=== PATIENT | male | born 1995 | race Caucasian/White ===

== ENCOUNTER 2016-04-25 13:05 | Emergency (ER) | payer SELFPAY ==
[2016-04-25 13:12] VITALS: BP 115/65; PULSE 75; TEMP 98.6; BMI 25.0
--- NOTE | 2016-04-25 13:15 | PDOC ---
History of Present Illness - General Chief Complaint: Injury Stated Complaint: RIGHT THIGH INJURY Time Seen by Provider: 04/25/16 13:15 Past History - Past Medical History Allergies/Adverse Reactions: Allergies Allergy/AdvReac Type Severity Reaction Status Date / Time No Known Allergies Allergy Verified 04/25/16 13:06 Home Medications: Ambulatory Orders Cephalexin [Keflex] 500 mg PO QID #30 capsule 04/25/16 Ibuprofen [Motrin -] 400 mg PO QID #120 tablet 04/25/16 Multivitamins [Tab-A-Vit -] 1 tab PO DAILY 04/25/16 Suicide Attempt (Hx): No Other medical history: DENIES - Psycho/Social/Smoking Cessation Hx Anxiety: No Suicidal Ideation: No Smoking Status: Yes Smoking History: Current every day smoker Have you smoked in the past 12 months: Yes Number of Cigarettes Smoked Daily: 5 Information on smoking cessation initiated: Yes 'Breaking Loose' booklet given: 04/25/16 Hx Alcohol Use: No Drug/Substance Use Hx: No Substance Use Type: None Trauma Specific PMHX - Complaint Specific PMHX Arthritis: No Back Injury: No Neck Injury: No Hx Sacro Iliac Joint Dysfunction: No Review of Systems - Review of Systems Able to Perform ROS?: Yes Is the patient limited Mauritian proficient: No Constitutional: No: Symptoms Reported HEENTM: No: Symptoms Reported Respiratory: No: Symptoms reported Cardiac (ROS): No: Symptoms Reported ABD/GI: No: Symptoms Reported : No: Symptoms Reported Musculoskeletal: Yes: Other (injury to right thigh on the job with lac to the distal right lateral thigh not bleeding) Integumentary: Yes: Other (lac as discribed approximately 2.5 cm) Neurological: No: Symptoms reported All Other Systems: Reviewed and Negative *Physical Exam - Vital Signs Last Vital Signs Temp Pulse Resp BP Pulse Ox 98.6 F 75 18 115/65 97 04/25/16 13:05 04/25/16 13:05 04/25/16 13:05 04/25/16 13:05 04/25/16 13:05 - Physical Exam Comments: 04/25/16 13:24 focused exam Extremity: positive: Other (tenderness right thigh (able to ambulate) lateral thigh lac, no visible FB, distally normal Neuro vascular motor exam) *DC/Admit/Observation/Transfer Diagnosis at time of Disposition: Contusion, Laceration - Discharge Dispostion Disposition: HOME Condition at time of disposition: Stable Admit: No - Prescriptions Prescriptions: Cephalexin [Keflex] 500 mg PO QID #30 capsule Ibuprofen [Motrin -] 400 mg PO QID #120 tablet - Referrals Referrals: Isael Plummer MD [Primary Care Provider] - - Patient Instructions Printed Discharge Instructions: Contusion, DI for Laceration Repair Additional Instructions: sutures out 7-10 days
[2016-04-25] MEDS ORDERED: DIPHTH,PERTUSS(ACELL),TET 0.5 ML DISP.SYRIN IM ONE (13:16)
== END 2016-04-25 14:42 | disposition home or self-care (01) ==
LOC: FER 13:05
PROC: 0HQHXZZ Repair Right Upper Leg Skin, External Approach (ICD-10-PCS; principal; 2016-04-25)
PROC: 3E0234Z Introduction of Serum, Toxoid and Vaccine into Muscle, Percutaneous Approach (ICD-10-PCS; 2016-04-25)
DX: S71.111A Laceration without foreign body, right thigh, initial encounter (principal); S70.11XA Contusion of right thigh, initial encounter; F17.210 Nicotine dependence, cigarettes, uncomplicated; X58.XXXA Exposure to other specified factors, initial encounter; Y93.9 Activity, unspecified; Y92.9 Unspecified place or not applicable
CPT/HCPCS: 12001-25; 73552-TC-RT; 90471; 90715; 99283-25

== ENCOUNTER 2019-03-12 20:42 | Emergency (ER) | payer OTHER ==
[2019-03-12 21:08] VITALS: BP 113/75; PULSE 83; TEMP 98.5; BMI 23.3
[2019-03-12] MEDS ORDERED: AZITHROMYCIN 500 MG TABLET PO ONE (21:09)
[2019-03-12] MEDS ORDERED: AZITHROMYCIN 250 MG TABLET ONE (21:11)
--- NOTE | 2019-03-12 22:30 | PDOC ---
Documentation entered by Chuck Vazquez SCRIBE, acting as scribe for Kirby Cuadra MD. Kirby Cuadra MD: This documentation has been prepared by the George landrum Xhesika, SCRIBE, under my direction and personally reviewed by me in its entirety. I confirm that the documentation accurately reflects all work, treatment, procedures, and medical decision making performed by me. History of Present Illness - General Chief Complaint: Urinary Problem Stated Complaint: URINARY PROBLEM Time Seen by Provider: 03/12/19 20:46 History Source: Patient Exam Limitations: No Limitations - History of Present Illness Initial Comments: 03/12/19 20:48 The patient is a 23 year old male with no significant PMH of who presents to the emergency department for dysuria and white penile discharge. Pt states he is sexually active with one partner. Pt denies hx of STD. The patient denies chest pain, shortness of breath, headache and dizziness. Denies fever, chills, cough, nausea, vomiting, diarrhea and constipation. Denies dysuria, frequency, urgency and hematuria. Allergies: NKDA Past History - Past Medical History Allergies/Adverse Reactions: Allergies Allergy/AdvReac Type Severity Reaction Status Date / Time No Known Allergies Allergy Verified 04/25/16 13:06 Home Medications: Ambulatory Orders Cephalexin [Keflex] 500 mg PO QID #30 capsule 04/25/16 Ibuprofen [Motrin -] 400 mg PO QID #120 tablet 04/25/16 Multivitamins [Tab-A-Vit -] 1 tab PO DAILY 04/25/16 Oseltamivir Phosphate [Tamiflu -] 75 mg PO BID #10 capsule 05/15/16 - Immunization History Immunization Up to Date: Yes - Psycho Social/Smoking Cessation Hx Smoking Status: Yes Smoking History: Current every day smoker Have you smoked in the past 12 months: Yes Number of Cigarettes Smoked Daily: 5 'Breaking Loose' booklet given: 05/15/16 Hx Alcohol Use: No Drug/Substance Use Hx: No Substance Use Type: None Review of Systems - Review of Systems Able to Perform ROS?: Yes Comments:: 03/12/19 20:49 GENERAL/CONSTITUTIONAL: No fever or chills. No weakness. HEAD, EYES, EARS, NOSE AND THROAT: No change in vision. No ear pain or discharge. No sore throat. CARDIOVASCULAR: No chest pain or shortness of breath. RESPIRATORY: No cough, wheezing, or hemoptysis. GASTROINTESTINAL: No nausea, vomiting, diarrhea or constipation. GENITOURINARY: +dysuria,+ penile discharge. No frequency, or change in urination. MUSCULOSKELETAL: No joint or muscle swelling or pain. No neck or back pain. SKIN: No rash NEUROLOGIC: No headache, vertigo, loss of consciousness, or change in strength/ sensation. ENDOCRINE: No increased thirst. No abnormal weight change. HEMATOLOGIC/LYMPHATIC: No anemia, easy bleeding, or history of blood clots. ALLERGIC/IMMUNOLOGIC: No hives or skin allergy. *Physical Exam - Vital Signs Last Vital Signs Temp Pulse Resp BP Pulse Ox 98.5 F 83 18 113/75 98 03/12/19 20:42 03/12/19 20:42 03/12/19 20:42 03/12/19 20:42 03/12/19 20:42 - Physical Exam 03/12/19 20:49 GENERAL: Awake, alert, and fully oriented, in no acute distress LUNGS: Breath sounds equal, clear to auscultation bilaterally. No wheezes, and no crackles HEART: Regular rate and rhythm, normal S1 and S2, no murmurs, rubs or gallops ABDOMEN: Soft, nontender, normoactive bowel sounds. No guarding, no rebound. No masses : +white penile discharge. EXTREMITIES: Normal range of motion, no edema. No clubbing or cyanosis. No cords, erythema, or tenderness NEUROLOGICAL: Cranial nerves II through XII grossly intact. Normal speech, normal gait SKIN: Warm, Dry, normal turgor, no rashes or lesions noted. Medical Decision Making - Medical Decision Making 03/12/19 22:30 sti abx counseled to refer partners for sti treatment Discharge - Discharge Information Problems reviewed: Yes Clinical Impression/Diagnosis: Urethritis Condition: Stable Disposition: HOME - Admission No - Follow up/Referral - Patient Discharge Instructions Patient Printed Discharge Instructions: DI for Gonorrhea Additional Instructions: Call for the results of your culture in 3 days: [phone] - Post Discharge Activity
--- NOTE | 2019-03-15 08:04 | PDOC ---
Patient Follow-up (Call Back) - Post ED Follow - Up Condition at time of discharge: Stable Disposition at time of original discharge: HOME Reason for Call Back: Abnwl. Lab - Disposition Additional Instructions/Notes: Pt called to obtain results of his STI testing. I confirmed that he was positive for gonorrhea and was treated in the ED. I explained that any partners should be made aware and should seek treatment, and that he should avoid intercourse for a week after treatment.
== END 2019-03-12 21:21 | disposition home or self-care (01) ==
LOC: FER 20:42
DX: N34.2 Other urethritis (principal); F17.210 Nicotine dependence, cigarettes, uncomplicated
CPT/HCPCS: 36415; 87491; 87591; 99282-25

== ENCOUNTER 2019-03-29 21:16 | Emergency (ER) | payer SELFPAY ==
[2019-03-29 21:22] VITALS: BP 116/75; PULSE 84; TEMP 98; BMI 23.3
[2019-03-29] MEDS ORDERED: OSELTAMIVIR PHOSPHATE 75 MG CAPSULE PO ONE (21:34)
[2019-03-29] MEDS ORDERED: OSELTAMIVIR PHOSPHATE 75 MG CAPSULE ONE (21:36)
--- NOTE | 2019-03-29 21:38 | PDOC ---
Documentation entered by Romeo Raya SCRIBE, acting as scribe for Jackelyn Turner MD. Jackelyn Turner MD: This documentation has been prepared by the Elver landrum Nirvannie, SCRIBE, under my direction and personally reviewed by me in its entirety. I confirm that the documentation accurately reflects all work, treatment, procedures, and medical decision making performed by me. History of Present Illness - General Chief Complaint: Headache Stated Complaint: NAUSEA/HEADACHE Time Seen by Provider: 03/29/19 21:20 History Source: Patient Exam Limitations: No Limitations - History of Present Illness Initial Comments: 03/29/19 21:40 HPI: The patient is a 23 year old male, with no significant past medical history, who presents to the emergency department with 6 hours of headache, nausea, vomiting, subjective fever, and malaise. As per patient, at approximately 3pm while at work his symptoms onset prompting him to go home and rest. He notes waking up 2 hours prior to his arrival at which time he took unknown fever medication and soup then reported to the ED. Patient is not up to date with his flu shot. He denies any recent diarrhea or constipation. He denies any recent chest pain or shortness of breath. He denies any recent dysuria, frequency, urgency or hematuria. PAST MEDICAL HISTORY: no significant history PAST SURGICAL HISTORY: no significant history FAMILY HISTORY: no pertinent history SOCIAL HISTORY: Pt lives with family and is employed. MEDICATIONS: reviewed ALLERGIES: As per nursing notes ROS: General: +Subjective fevers. +Malaise. no weight loss HEENT: No change in vision. No sore throat,. No ear pain CardioVascular: No chest pain or shortness of breath Respiratory:No cough, or wheezing. Gastrointestinal: +nausea +vomiting. No diarrhea or constipation, No rectal bleeding Genitourinary: No dysuria, hematuria, or frequency Musculoskeletal: No joint or muscle pain or swelling Neurologic: + headache. No vertigo, dizziness or loss of consciousness Psychiatric: nor depression Skin: No rashes or easy bruising Endocrine: no increased thirst or abnormal weight change Allergic: no skin or latex allergy All other systems reviewed and normal Physical Exam: GENERAL: The patient is awake, alert, and fully oriented, in no acute distress. HEAD: Normal with no signs of trauma. EYES: Pupils equal, round and reactive to light, extraocular movements intact, sclera anicteric, conjunctiva clear. ENT: Throat: +Mildly erythematous. EXTREMITIES: Normal range of motion, no edema. NEUROLOGICAL: Normal speech, normal gait. PSYCH: Normal mood, normal affect. SKIN: Warm, Dry, normal turgor, no rashes or lesions noted. 03/29/19 21:41 Past History - Past Medical History Allergies/Adverse Reactions: Allergies Allergy/AdvReac Type Severity Reaction Status Date / Time No Known Allergies Allergy Verified 04/25/16 13:06 Home Medications: Ambulatory Orders Oseltamivir Phosphate [Tamiflu] 75 mg PO BID #10 capsule 03/29/19 COPD: No - Immunization History Immunization Up to Date: Yes - Psycho Social/Smoking Cessation Hx Smoking Status: Yes Smoking History: Never smoked Have you smoked in the past 12 months: Yes Number of Cigarettes Smoked Daily: 5 'Breaking Loose' booklet given: 05/15/16 Hx Alcohol Use: No Drug/Substance Use Hx: No Substance Use Type: None *Physical Exam - Vital Signs Last Vital Signs Temp Pulse Resp BP Pulse Ox 98 F 84 16 116/75 100 03/29/19 21:18 03/29/19 21:18 03/29/19 21:18 03/29/19 21:18 03/29/19 21:18 Discharge - Discharge Information Problems reviewed: Yes Clinical Impression/Diagnosis: Influenza-like illness Condition: Stable - Admission No - Additional Discharge Information Prescriptions: Oseltamivir Phosphate [Tamiflu] 75 mg PO BID #10 capsule - Follow up/Referral - Patient Discharge Instructions Patient Printed Discharge Instructions: Influenza Additional Instructions: Take Tamiflu 1 tablet twice a day for 5 days. Tylenol or Motrin as needed for headache, fever, body aches. No work until March Return to the emergency department immediately with ANY new, persistent or worsening symptoms. Continue any medications as previously prescribed by your physician. You should follow up with your primary doctor as soon as possible regarding today's emergency department visit. . Please make sure your doctor reviews the results of your emergency evaluation. Thank you for coming to the Emergency Department today for your care. It was a pleasure to see you today. Please note that your evaluation is INCOMPLETE until you follow-up with your doctor. - Post Discharge Activity Work/Back to School Note: Back to Work
== END 2019-03-29 21:42 | disposition home or self-care (01) ==
LOC: FER 21:16
DX: J11.1 Influenza due to unidentified influenza virus with other respiratory manifestations (principal); Z87.891 Personal history of nicotine dependence
CPT/HCPCS: 99281-25

== ENCOUNTER 2019-05-06 00:51 | Emergency (ER) | payer OTHER ==
[2019-05-06 00:56] VITALS: BP 0/0; BMI 23.3
[2019-05-06] MEDS ORDERED: AZITHROMYCIN 500 MG TABLET PO ONE (01:11)
[2019-05-06] MEDS ORDERED: AZITHROMYCIN 500 MG TABLET ONE (01:12)
--- NOTE | 2019-05-06 01:12 | PDOC ---
History of Present Illness - General Chief Complaint: Urinary Problem Stated Complaint: WANTS RX FOR STD'S Time Seen by Provider: 05/06/19 01:06 History Source: Patient Exam Limitations: No Limitations - History of Present Illness Initial Comments: 05/06/19 01:12 This is a 23-year-old male who comes in complaining of penile discharge. Patient has a history of STDs in the past and does not use condoms with sexual intercourse. Patient said his partner tested positive recently for an STD. Allergies: as per nursing notes Past Medical History: none Social history: Lives with family. No smoking. No alcohol. No illicit drugs. Surgical history: None General: No fevers or chills, no weakness, no weight loss HEENT: No change in vision. No sore throat,. No ear pain CardioVascular: no chest discomfort. No shortness of breath Respiratory:No cough, or wheezing. Gastrointestinal: no nausea, vomiting, diarrhea or constipation, No rectal bleeding Genitourinary: No dysuria, hematuria, or frequency Musculoskeletal: No joint or muscle pain or swelling Neurologic: No headache, vertigo, dizziness or loss of consciousness Psychiatric: nor depression Skin: No rashes or easy bruising Endocrine: no increased thirst or abnormal weight change Allergic: no skin or latex allergy All other systems reviewed and normal GENERAL: The patient is awake, alert, and fully oriented, in no acute distress. HEENT:Head is normal with no signs of trauma. Eyes: Pupils equal, round and reactive to light, Ears, and Throat are normal. Neck is supple. No Lymphadenopathy. EXTREMITIES:atraumatic, Normal range of motion, no edema. NEUROLOGICAL: Normal speech, normal gait. PSYCH: Normal mood, normal affect. SKIN: Warm, Dry, normal turgor, no rashes or lesions noted. exam: There is a normal circumcised male with white discharge from the tip of the penis. There is no lesions Assessment and plan: This is a 23-year-old male with STD. Patient given ceftriaxone and azithromycin and a VDRL was sent. Patient was instructed to use condoms with intercourse and no sexual intercourse until he has the results of his cultures and his partner or partners will need to be treated as well Past History - Past Medical History Allergies/Adverse Reactions: Allergies Allergy/AdvReac Type Severity Reaction Status Date / Time No Known Allergies Allergy Verified 04/25/16 13:06 Home Medications: Ambulatory Orders NK [No Known Home Medication] 05/06/19 COPD: No - Immunization History Immunization Up to Date: Yes - Psycho Social/Smoking Cessation Hx Smoking Status: Yes Smoking History: Current every day smoker Have you smoked in the past 12 months: Yes Number of Cigarettes Smoked Daily: 5 Information on smoking cessation initiated: Yes 'Breaking Loose' booklet given: 05/15/16 Hx Alcohol Use: No Drug/Substance Use Hx: No Substance Use Type: None *Physical Exam - Vital Signs Last Vital Signs Temp Pulse Resp BP Pulse Ox 0/0 L 05/06/19 00:54 Discharge - Discharge Information Problems reviewed: Yes Clinical Impression/Diagnosis: STD (male) Condition: Stable Disposition: HOME - Admission No - Follow up/Referral - Patient Discharge Instructions Additional Instructions: No sexual intercourse until you have the results of your testing for your STD and then your partners will need to be notified and treated. In the future you should use condoms with sexual intercourse to prevent future STDs.. Return to the emergency department immediately with ANY new, persistent or worsening symptoms. Continue any medications as previously prescribed by your physician. You should follow up with your primary doctor as soon as possible regarding today's emergency department visit. . Please make sure your doctor reviews the results of your emergency evaluation. Thank you for coming to the Emergency Department today for your care. It was a pleasure to see you today. Please note that your evaluation is INCOMPLETE until you follow-up with your doctor. - Post Discharge Activity
== END 2019-05-06 01:19 | disposition home or self-care (01) ==
LOC: FER 00:51
DX: Z20.2 Contact with and (suspected) exposure to infections with a predominantly sexual mode of transmission (principal); F17.210 Nicotine dependence, cigarettes, uncomplicated
CPT/HCPCS: 99283-25

== ENCOUNTER 2023-06-07 10:26 | Emergency (ER) | payer OTHER ==
[2023-06-07 10:33] VITALS: BP 118/84; PULSE 74; RESP 20; TEMP 99.4; BMI 25.8
[2023-06-07] MEDS: NAPROXEN 500 MG TABLET PO ONE (11:09)
[2023-06-07] MEDS ORDERED: NAPROXEN 500 MG TABLET ONE (11:10)
== END 2023-06-07 11:24 | disposition home or self-care (01) ==
LOC: FER 10:26
DX: R51.9 Headache, unspecified (principal); K64.8 Other hemorrhoids
CPT/HCPCS: 99283-25

== ENCOUNTER 2023-12-27 09:56 | Emergency (ER) | payer OTHER ==
[2023-12-27 10:34] VITALS: BP 110/81; PULSE 73; RESP 20; TEMP 98.4; BMI 29.9
[2023-12-27] MEDS ORDERED: ACETAMINOPHEN 325 MG TABLET (FP) ONE (10:42)
[2023-12-27] MEDS: ACETAMINOPHEN 325 MG TABLET (FP) PO ONE (10:51)
== END 2023-12-27 11:23 | disposition home or self-care (01) ==
LOC: FER 09:56
DX: S40.012A Contusion of left shoulder, initial encounter (principal); S80.01XA Contusion of right knee, initial encounter; R07.9 Chest pain, unspecified; V49.50XA Passenger injured in collision with unspecified motor vehicles in traffic accident, initial encounter; Y92.410 Unspecified street and highway as the place of occurrence of the external cause
CPT/HCPCS: 71046-TC-FY; 73030-TC-LT-FY; 73560-TC-RT-FY; 99284-25